=== PATIENT | male | born 1940 | race Caucasian/White ===

== ENCOUNTER 2019-12-27 18:13 | Emergency (ER) | payer MEDICARE, OTHER ==
[~2019-12-27] VITALS: Ht 172.7 cm; Wt 59.0 kg
[2019-12-27] MEDS ORDERED: KETOROLAC TROMETHAMINE INJ 30 MG/ML VIAL IV ONE (18:30)
[2019-12-27] MEDS ORDERED: IV NS 0.9% 500 ML BAG IV ONE (18:30)
--- NOTE | 2019-12-27 18:49 | NUR ---
Patient awake alert no distress @ this time [place] speaking moved to room 9 BS 104 ,EKG ,lab drw,gown continue to monitor
[2019-12-27] MEDS ORDERED: KETOROLAC TROMETHAMINE 15 MG/ML VIAL ONE (18:53)
[2019-12-27 19:11] LABS: BASOPHILS % (AUTO) 0.4 % (0.0-2.0); EOSINOPHILS % (AUTO) 6.7 % (0.0-6.0); HEMATOCRIT 32 % (39-51); HEMOGLOBIN 10.6 g/dL (13.5-17.5); LYMPHOCYTES # (AUTO) 1.5 /CMM (0.8-4.8); LYMPHOCYTES % (AUTO) 25.9 % (20.0-44.0); MEAN CORPUSCULAR HGB CONC 33 g/dl (31.0-36.0); MEAN CORPUSCULAR VOLUME 92 fL (80-96); MONOCYTES # (AUTO) 0.5 /CMM (0.1-1.30); MONOCYTES % (AUTO) 8.8 % (2.0-12.0); NEUTROPHILS # (AUTO) 3.3 /CMM (1.8-8.9); NEUTROPHILS % (AUTO) 58.2 % (43.0-81.0); PLATELET COUNT (AUTO) 178 /CMM (150-450); RED BLOOD CELL COUNT(AUTO) 3.44 MIL/uL (4.5-6.0); WHITE BLOOD COUNT (AUTO) 5.7 K/uL (4.3-11.0)
[2019-12-27 19:13] LABS: CALCIUM, SERUM 8.8 mg/dL (8.5-10.1); CARBON DIOXIDE 26 mmol/L (21-32); CHLORIDE 106 mmol/L (98-107); CREATININE 1.4 mg/dL (0.6-1.3); GLUCOSE 109 mg/dL (74-106); POTASSIUM 4.4 mmol/L (3.5-5.1); SODIUM SERUM 140 mmol/L (136-145); UREA NITROGEN, BLOOD 38 mg/dL (7-18)
[2019-12-27 19:20] LABS: ACETAMINOPHEN 0 ug/ml (10-30); ALANINE AMINOTRANSFERASE 43 U/L (12-78); ALBUMIN 3.7 g/dL (3.4-5.0); ALCOHOL, BLOOD < 3 mg/dL (0-0); ALKALINE PHOSPHATASE 58 U/L (46-116); ASPARTATE AMINOTRANSFERASE 26 U/L (15-37); BILIRUBIN,DIRECT 0.1 mg/dL (0.0-0.2); BILIRUBIN,TOTAL 0.4 mg/dL (0.2-1.0); SALICYLATE 1.4 mg/dL (2.8-20.0); TOTAL PROTEIN, SERUM 7.7 g/dL (6.4-8.2)
[2019-12-27 19:24] LABS: SERUM AMMONIA 19 umol/L (11-32)
--- NOTE | 2019-12-27 19:27 | NUR ---
RADIOLOGY AT BEDSIDE FOR CXR
[2019-12-27] MEDS ORDERED: IOHEXOL-300 100 ML VIAL IV ONE (19:35)
[2019-12-27 19:36] LABS: THYROID STIMULATING HORMONE 0.833 uIU/mL (0.358-3.74)
[2019-12-27 19:46] LABS: APPEARANCE,URINE CLEAR (CLEAR); BILIRUBIN,URINE NEGATIVE (NEGATIVE); BLOOD, URINE NEGATIVE Ery/uL (NEGATIVE); COLOR,URINE YELLOW (YELLOW); KETONES,URINE NEGATIVE (NEGATIVE); LEUKOCYTE ESTERASE ,URINE NEGATIVE (NEGATIVE); NITRITE, URINE NEGATIVE (NEGATIVE); PROTEIN,URINE NEGATIVE (NEGATIVE); UGLUCOSE NEGATIVE (NEGATIVE); UROBILINOGEN,URINE 0.2 EU/dL (0.2)
[2019-12-27] MEDS ORDERED: IV NS 0.9% 1,000 ML BAG IV ONE (20:00)
--- NOTE | 2019-12-27 20:54 | NUR ---
CALLED SONA MULLIGAN FOR TELE BED.
[2019-12-27] MEDS ORDERED: ASPIRIN EC 81 MG TABLET.DR PO ONE (21:00)
--- NOTE | 2019-12-27 21:08 | NUR ---
PT ASSIGNED TO [facility] [id number]
[2019-12-27 21:55] VITALS: BP 144/58
--- NOTE | 2019-12-27 21:56 | NUR ---
Patient daughter does not wish to proceed with medical care recommended by Dr. Salcido. Patient daughter given information related to possible complications, up to and including , which could occur as a result of leaving the hospital at this time. Patient daughter verbalizes understanding of risks involved due to leaving against medical advice. Patient daughter has signed AMA form.
== END 2019-12-27 21:57 | disposition left against medical advice (07) ==
LOC: ER 18:15 → TELE 21:23 → UNDOADMIN 21:23
DX: G45.9 Transient cerebral ischemic attack, unspecified (principal); F03.90 Unspecified dementia, unspecified severity, without behavioral disturbance, psychotic disturbance, mood disturbance, and anxiety; R41.82 Altered mental status, unspecified
CPT/HCPCS: 36415; 70450; 70491; 71045; 80048; 80076; 80305; 80307; 80329; 81001; 82140; 82962; 83605; 84443; 84484; 85025; 85730; 87040 ×2; 87081; 87086; 93005; 96361; 96374; 99285; G0480; J1885; J7030; Q9967; 81000-TC; G0378